=== PATIENT | male | born 1970 | race African-American/Black ===

== ENCOUNTER → 2017-05-06 | Outpatient (CLI) | payer OTHER, MEDICARE ==
[~2017-05-06] MED LIST: KEFLEX PO
--- NOTE | ~2017-05-06 | MR152 ---
[facility] A Service of [facility] RADIOLOGY TEXT RESULTS PATIENT: BERNICE MARRUFO LOCATION: [facility] : 66 UNIT #: [id number] AGE: [address]: Marcin Torres MD SEX: M ORDER DR: [id number] [address] [id number] O MR#: [id number] Acc #: [id number] NAME: BERNICE MARRUFO. : 1970 SEX: M STUDY DATE/TIME: 05/06/2017 11:24 UNIT: [facility] ROOM: STUDY DESCRIPTION: MR Pelvis Wo Contrast Attending Physician: Marcin Torres M.D. Referring Physician: Marcin Torres M.D. Ordering Physician: Marcin Torres M.D. Primary Care Physician: Brandy Zuleta M.D. MRI CENTER REPORT This report is preliminary unless electronic signature is present. EXAM MRI of the right hip and pelvis. HISTORY 46-year-old male status post gamma nail fixation right hip 2008. Complains of increasing right hip pain, severe over the last month. History of avascular necrosis. Evaluate for sepsis of the hip. TECHNIQUE Multiplanar, multiecho imaging was performed of the right hip and pelvis utilizing a high field magnet and dedicated protocol. Metal reduction sequences were employed. FINDINGS The examination demonstrates susceptibility artifact related to the patient's proximal left femoral fixation instrumentation. There is a partially visualized intramedullary nail, proximal interlocking screw. Marrow signal abnormality and deformity seen within the right femoral head consistent the patient's history of avascular necrosis. There is a sizable focus of subchondral collapse along the weightbearing aspect of the femoral head estimated about 3.7 cm in greatest dimension. Some marrow edema is noted within the femoral head and also in the region of the femoral neck, as well as edema along the weightbearing aspect of the acetabulum. This is nonspecific and may be related to secondary arthrosis. There is a small amount of hip joint fluid, nonspecific, could represent synovitis. The findings within the right hip are more suggestive of secondary osteoarthritis. Septic arthritis considered less likely but an indolent infection is not entirely excluded. Correlation with laboratory data may be of benefit. If clinical concern for infection remains high, joint aspiration may be warranted. The left hip unremarkable except for a small amount of degeneratio of the anterosuperior labrum. SI joints and visualized lower lumbar spine unremarkable. There is an intramedullary lesion within the medial aspect [facility] A Service of [facility] RADIOLOGY TEXT RESULTS PATIENT: BERNICE MARRUFO LOCATION: [facility] : 66 UNIT #: [id number] AGE: [address]: Macrin Torres MD SEX: M ORDER DR: of the left iliac bone measuring about 2.9 cm in greatest dimension. Imaging features are nonspecific but suggest a chondroid lesion. Correlation with any prior studies may be of benefit to confirm stability. It is not clearly visible on an abdominal series of 11/24/2006. Patient does demonstrate facet arthropathy lower lumbar spine. Mild atrophy of the right hip and gluteal soft tissues. Heterotopic ossification and suspected areas of fat necrosis are noted superior and lateral to the right greater trochanter. Internal pelvic structures are unremarkable. IMPRESSION 1. Extensive avascular necrosis involving the right femoral head with evidence of subchondral collapse. Estimated greater than 50% involvement of the right femoral head. 2. Postsurgical changes from previous ORIF with apparent intact instrumentation. Marrow edema within the femoral head and within the adjacent acetabulum. 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 There is a small hip effusion. Findings less concerning for septic arthritis, however, if clinical suspicion remains high joint aspiration and fluid analysis may be warranted. The lack of surrounding soft tissue inflammation and edema disfavors infection. 3. 2.9 cm intramedullary lesion left iliac bone probably represents a benign chondroid lesion such as enchondroma but correlation with any prior studies such as CT may be of benefit to confirm long-term stability. No aggressive features are identified. 4. Lower lumbar spine facet arthropathy. 5. 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 Correlation with conventional radiographs may be of benefit to confirm the degree of possible heterotopic ossification. Dictated by... J. Perry Benavides, M.D. THIS IS AN ELECTRONICALLY VERIFIED REPORT Alma Benavides M.D. at 05/07/2017 4:48 PM MARTINEZ/destiny TD: 05/07/2017 11:26 JOB #: [id number] MRI CENTER REPORT Page 1 of 1
[2017-05-06 12:35] LABS: BASOPHIL% 0.7 % (0-2.5); EOSINOPHIL# 0.2 X10e3 (0-0.7); EOSINOPHIL% 2.3 % (0.0-7.0); HEMATOCRIT 36.4 % (38.0-50.0); HEMOGLOBIN 12.3 gm/dL (13.0-16.0); LYMPHOCYTE# 2.6 X10e3 (1.0-3.5); MEAN CELL VOLUME 86.1 FL (83-96); MEAN CORPUSCULAR HEMOGLOBIN 29.1 PG (28-34); MEAN CORPUSCULAR HGB CONC 33.8 g/dL (30-36); MEAN PLATELET VOLUME 7.4 FL (6.5-11.5); MONOCYTE# 0.4 X10e3 (0-1.0); MONOCYTE% 6.1 % (3.0-12.0); NEUTROPHIL% 54.9 % (40-75); PLATELET COUNT 318 X10e3 (140-420); RED BLOOD COUNT 4.23 X10e (3.90-5.60); RED CELL DISTRIBUTION WIDTH 15.9 % (11.0-15.5); WHITE BLOOD COUNT 7.2 X10e3 (4.0-10.5)
[2017-05-06 12:39] LABS: DIFF IND NO
[2017-05-06 13:36] LABS: SEDIMENTATION RATE-SW ONLY 62 mm/hr (0-25)
== END | disposition home or self-care (01) ==
LOC: SMRI 10:52
PROVIDERS: Orthopaedic Surgery Orthopaedic Surgery of the Spine
DX: M16.11 Unilateral primary osteoarthritis, right hip (principal); M87.9 Osteonecrosis, unspecified; R60.0 Localized edema; M46.96 Unspecified inflammatory spondylopathy, lumbar region; M25.451 Effusion, right hip; Z98.890 Other specified postprocedural states
CPT/HCPCS: 36415; 72195; 85025; 85651; 86140